=== PATIENT | male | born 1980 | race Caucasian/White ===

== ENCOUNTER 2024-10-16 16:45 | Emergency (ER) | payer BC ==
[2024-10-16] MEDS: Iopamidol 755 MG/ML 500 ML Multipack Bottle IVPUSH STA (19:07)
[2024-10-16] MEDS: Ketorolac 30 MG/ML SDV IVPUSH ONE (19:19)
[2024-10-16 19:27] LABS: BASOPHILS ABSOLUTE AUTO 0.03 K/uL (0.00-0.20); BASOPHILS PERCENT AUTO 0.3 % (0.0-1.0); EOSINOPHILS ABSOLUTE AUTO 0.05 K/uL (0.00-0.45); EOSINOPHILS PERCENT AUTO 0.4 % (0.0-6.0); IMMATURE GRAN ABSOLUTE AUTO 0.03 K/uL (0.00-0.05); IMMATURE GRAN PERCENT AUTO 0.3 % (0.0-0.4); LYMPHOCYTES ABSOLUTE AUTO 1.37 K/uL (1.00-4.80); LYMPHOCYTES PERCENT AUTO 12.3 % (24.0-44.0); MEAN PLATELET VOLUME 10.1 fL (9.4-12.4); MONOCYTES ABSOLUTE AUTO 1.18 K/uL (0.00-0.80); MONOCYTES PERCENT AUTO 10.6 % (0.0-8.0); NEUTROPHILS ABSOLUTE AUTO 8.49 K/uL (1.80-7.70); NEUTROPHILS PERCENT AUTO 76.1 % (41.0-71.0); NRBC ABSOLUTE 0.00 K/uL (0.00-0.02); NRBC PERCENT 0.0 /100WBC (0.0-0.2); PLATELET COUNT,PLT 249 K/uL (150-400); RED BLOOD CELL COUNT 4.11 M/uL (4.52-5.90); WHITE BLOOD CELL COUNT,WBC 11.15 K/uL (3.9-11.3)
[2024-10-16 19:51] LABS: A/G RATIO 0.9 (0.9-1.6); ALANINE AMINOTRANSFERASE,ALT 26.0 IU/L (14-63); BILIRUBIN TOTAL 0.7 mg/dL (0.2-1.0); BLOOD UREA NITROGEN,BUN 19.0 mg/dL (7.0-18.0); CARBON DIOXIDE,CO2 27.9 mmol/L (21.0-32.0); CHLORIDE,CL 99.0 mmol/L (98-107); CREATININE 1.8 mg/dL (0.8-1.3); EST CRCL DRUG DOSING (CG) 49.61 mL/min; ESTIMATED GFR 46.0 mL/min (>60); GLUCOSE RANDOM 114.0 mg/dL (74-106); POTASSIUM,K 4.4 mmol/L (3.5-5.1); PROTEIN TOTAL,TP 6.7 g/dL (6.4-8.2); SODIUM,NA 132.0 mmol/L (136-148)
[2024-10-16 19:52] LABS: APPEARANCE,URINE CLEAR; GLUCOSE,URINE NEGATIVE (NEGATIVE); OCCULT BLOOD,URINE TRACE-INTACT (NEGATIVE)
[2024-10-16 20:00] LABS: ASPARTATE AMNIOTRANSFERASE,AST 22.0 IU/L (15-37)
[2024-10-16 20:03] LABS: EPITHELIAL CELLS,URINE RARE (NONE-FEW)
== END 2024-10-16 20:48 | disposition home or self-care (01) ==
LOC: MW.ED 16:45
DX: N13.2 Hydronephrosis with renal and ureteral calculous obstruction (principal); I10 Essential (primary) hypertension; E11.9 Type 2 diabetes mellitus without complications; Z75.3 Unavailability and inaccessibility of health-care facilities; Z79.84 Long term (current) use of oral hypoglycemic drugs; Z79.899 Other long term (current) drug therapy
CPT/HCPCS: 36415; 74177; 80053; 81001; 83690; 83735; 85025; 96361; 96374; 99284; J1885; J7030; Q9967